=== PATIENT | female | born 1945 | race Caucasian/White ===

== ENCOUNTER 2016-10-07 22:14 | Inpatient (IN) | payer OTHER ==
--- NOTE | ~2016-10-07 | IDS ---
Interim Discharge Summary [facility] [address] [place]. [address] NAME: CHARLOTTE DUNN : 49 STATUS : ADM IN [facility]#: [id number] AGE: 71 ADM/REG DATE : 10/08/16 MR#: [id number] REPORT SERV DATE: 10/26/16 DICTATED BY: GRAHAM CHAUDHARI DATE: 10/26/16 REPORT STATUS : Draft TRANSCRIBED BY: MODL DATE: 10/26/16 ADMISSION DATE: 10/08/2016 DISCHARGE DATE: ADMISSION DIAGNOSES: 1. Hypercapnic respiratory failure requiring intubation mechanical ventilation. 2. Chronic obstructive pulmonary disease exacerbation. 3. Possible pneumonia. 4. Asthma. 5. Degenerative joint disease. 6. Restless legs syndrome. 7. Hypertension. TRANSFER DIAGNOSES: 1. Hypercapnic respiratory failure requiring intubation mechanical ventilation x2. Currently extubated on 5 L with improving chest x-ray. 2. Methicillin-resistant Staphylococcus aureus pneumonia. 3. Chronic obstructive pulmonary disease. 4. Acute kidney injury, resolved. 5. Urinary tract infection, resolved. 6. Type 2 myocardial infarction secondary to hypercapnic respiratory failure, chronic obstructive pulmonary disease. HOSPITAL COURSE: This is a 71-year-old patient, who was admitted to the Critical Care Service on 10/08 for hypercapnic respiratory failure, required intubation, mechanical ventilation. The patient was hypotensive and considered septic, grew out MRSA from her sputum for which she was treated. She was also treated for COPD exacerbation with bronchodilators and steroids which are currently being weaned. She was extubated on 10/15. However, later that evening, required re-intubation for respiratory distress. There was some concern that the patient may very well need a tracheostomy and ENT was consulted. However, the patient was then successfully extubated and has remained off the vent and has been off the vent at least since 10/21. She remains on 5 L nasal cannula. She is alert and awake and currently not in any respiratory distress. [facility] Cardiology was consulted to see the patient and felt that she had a type 2 myocardial infarct. She had an echocardiogram done on 10/12 that showed an ejection fraction of 60%, mild left ventricular diastolic dysfunction, and dilated left atrium. No further workup was required as per Cardiology. Volume status is very closely followed. The patient was diuresed as needed. She also has a diagnosis of type 2 diabetes mellitus and currently is on no insulin sliding scale and in reviewing her home medications she is not on anything for her diabetes at home either. So the diagnosis then is questionable. Her hypotension resolved. She currently has a PICC line and has orders for Physical Therapy. The plan will be to transfer her to the floor, to the Hospitalist Service, and Pulmonary to follow. Of note, in reviewing her culture results apparently she was listed as having a UTI. However, in reviewing the culture, she never had a urine culture sent. So then again the diagnosis of UTI probably is not the case. In reviewing her urinalysis from 10/07, it does not appear that she had a UTI. So the diagnosis of the UTI is not valid. We will also ask the Pulmonary Service to follow along Interim Discharge Summary [address] [place]. [address] NAME: CHARLOTTE DUNN : 49 STATUS : ADM IN PAT#: [id number] AGE: 71 ADM/REG DATE : 10/08/16 MR#: [id number] REPORT SERV DATE: 10/26/16 DICTATED BY: GRAHAM CHAUDHARI DATE: 10/26/16 REPORT STATUS : Draft TRANSCRIBED BY: CODI DATE: 10/26/16 and manage her bronchodilators. Incentive spirometry has been ordered for the patient. /CODI Graham Chaudhari M.D. / [id number] CC: Cristal Almaraz M.D.
--- NOTE | ~2016-10-07 | HP ---
History And Physical [place] [id number] [facility] [place]. [address] NAME: CHARLOTTE DUNN : 49 STATUS : ADM IN [facility]#: [id number] AGE: 71 ADM/REG DATE : 10/08/16 MR#: [id number] REPORT SERV DATE: 10/08/16 DICTATED BY: RAVEN BARGER DATE: 10/08/16 REPORT STATUS : Draft TRANSCRIBED BY: MODL DATE: 10/08/16 DATE OF ADMISSION: 10/07/2016 Seen in ER bed 2. HISTORY OF PRESENT ILLNESS: The patient is a 71-year-old white female, who was brought into the ER tonight by her because he had difficulty arousing her. Reportedly, she went to bed okay the night before. Her tried to get her up by noon and could not wake her up at all by 6 p.m. She came into the hospital with arterial blood gas, which showed a significant hypercapnic respiratory failure and acidosis. She required intubation and mechanical ventilation. PAST MEDICAL HISTORY: Significant for COPD, asthma, DJD, restless legs syndrome, hypertension, GERD, and gastroparesis. She is status post total knee replacement and cholecystectomy. REVIEW OF SYSTEMS: As noted above. All other systems negative. FAMILY HISTORY: Significant for colon cancer in mother, who at 64 and father of emphysema. The patient has a [id number] smoking history. Drinks socially. Lives with her . ALLERGIES: SHE IS ALLERGIC TO PENICILLIN, PENTAZOCINE, ASPIRIN, PROCHLORPERAZINE, CODEINE, OXYCODONE, PROPOXYPHENE, AND BUTORPHANOL. MEDICATIONS: Her home med list is pending. PHYSICAL EXAMINATION: VITAL SIGNS: Currently, blood pressure when I arrived was . GENERAL: The patient had been orally intubated. She was slightly pale in appearance. HEENT: Head was otherwise normocephalic. Sclerae and conjunctivae clear. Pupils reactive. NECK: Supple. There appears to be a possible carotid endarterectomy scar seen in the right neck. CHEST: Decreased breath sounds. Occasional wheezing. CARDIAC: S1, S2. No murmurs. ABDOMEN: Slightly obese and nontender. No masses or organomegaly. EXTREMITIES: No clubbing, cyanosis, or edema. Pulses are barely palpable. NEUROLOGIC: She does move all extremities. LABORATORY DATA: Showed initial arterial blood gas; pH of 7.16, pO2 of 80, pCO2 of 68, on 50%. CT of brain, no acute intracranial pathology. Urine drug screen positive for opiates, lactate 6.9. Drug screen; acetaminophen less than 2, salicylate 2.4, alcohol less than 10. Sodium 139; potassium 4.1; chloride 97; CO2 of 26; BUN 34; creatinine 2.61, up from 0.93 on 09/16/2016; glucose 105; calcium 9.2; total protein 8; albumin 3.7. Alkaline phosphatase 135, ALT 20, AST 66. CBC showed an H and H of 14.2 and 48.3, white count of 8300, platelet History And Physical [address] [address] NAME: CHARLOTTE DUNN : 49 STATUS : ADM IN [facility]#: [id number] AGE: 71 ADM/REG DATE : 10/08/16 MR#: [id number] REPORT SERV DATE: 10/08/16 DICTATED BY: RAVEN BARGER DATE: 10/08/16 REPORT STATUS : Draft TRANSCRIBED BY: MODL DATE: 10/08/16 count of 196,000. PTT 32, INR 1.1, PT 14.1. Urinalysis basically negative. IMPRESSION: 1. Hypercapnic respiratory failure. 2. Acute kidney injury. 3. Elevated serum lactate. Cause unknown at this time. Will be repeated. 4. Chronic obstructive pulmonary disease. 5. Chronic pain syndrome. PLAN: We will keep her intubated. We will start Levophed for blood pressure. Given 2 L of saline. No indication for antibiotics at this point in time. Repeat blood gas after intubation showed a pH of 7.24, pCO2 of 48, pO2 of 158, 100% oxygen. A chest x-ray showed a large amount of gas in the stomach. She had some cervical x-ray. The x-ray is relatively clear, otherwise. PROCEDURE: Right central venous line, internal jugular. INDICATION: For access emergent. DESCRIPTION OF PROCEDURE: Informed consent was obtained from family. Time-out done. The patient placed in Trendelenburg position. ChloraPrep scrub. Xylocaine 1%. Ultrasound- guided right IJ entered with seeker needle. Catheter placed over guidewire via modified Seldinger technique to [address] Sterile technique used throughout. Confirmed by agitated saline bubble echo. Chest x-ray pending. Sterile technique used throughout. PARI/CODI Raven Barger M.D. / [id number] CC: Zhou Lei M.D.
--- NOTE | ~2016-10-07 | CN ---
Consultation Report [facility] [address] [place]. [address] NAME: CHARLOTTE GRANT : 49 STATUS : ADM IN [facility]#: [id number] AGE: 71 ADM/REG DATE : 10/08/16 MR#: [id number] REPORT SERV DATE: 10/21/16 DICTATED BY: CLEM KEITH DATE: 10/21/16 REPORT STATUS : Draft TRANSCRIBED BY: CODI DATE: 10/21/16 CONSULTATION DATE OF CONSULTATION: 10/21/2016 REASON FOR CONSULTATION: Tracheostomy. HISTORY OF PRESENT ILLNESS: Ms Grant is a 71-year-old female admitted on 10/08/2016 for hypercapnic respiratory failure, subsequently required intubation. Despite multiple attempts, since her admission to wean her and extubate her, had been unsuccessful, and they called to see the patient regarding tracheostomy for long-term ventilator management. PAST MEDICAL HISTORY: COPD, hypertension, chronic pain syndrome, gastroparesis, and renal insufficiency. SOCIAL HISTORY: Tobacco abuse. PHYSICAL EXAMINATION: GENERAL: The patient is intubated, arousable. HEENT: Both ears are clear. Nose is clear. Oral cavity and oropharynx; she has an endotracheal tube in place. NECK: Supple. No palpable adenopathy. No masses. No thyromegaly. IMPRESSION: 1. Hypercapnic respiratory failure. 2. Chronic obstructive pulmonary disease. RECOMMENDATIONS: I agree with need for tracheostomy. If the family agrees to proceed, we will discuss with the patient's family and schedule for some point in the future. MEGAN/CODI Clem Keith M.D. / [id number] CC: Chuy Barger M.D.
--- NOTE | ~2016-10-07 | OP ---
Record Of Operation [facility] [address] [place] [address] NAME: CHARLOTTE DUNN : 49 STATUS : ADM IN [facility]#: [id number] AGE: 71 ADM/REG DATE : 10/08/16 MR#: [id number] REPORT SERV DATE: 10/15/16 DICTATED BY: GRAHAM CHAUDHARI DATE: 10/14/16 REPORT STATUS : Draft TRANSCRIBED BY: MODL DATE: 10/14/16 DATE OF PROCEDURE: 10/14/2016 PROCEDURE: Intubation. REASON: Hypoxic respiratory failure, failed BiPAP. The patient is a full code. The patient was extubated earlier today. Chest x-ray showed florid pulmonary vascular congestion. BiPAP did not alleviate the patient's respiratory distress. She was pre-oxygenated with 100% oxygen and given 20 mg of IV etomidate and 5 mL of IV Diprivan for intubation. GlideScope was used. The patient was monitored throughout the procedure. Vocal cords were well visualized and an #8 endotracheal tube was placed on the first attempt without difficulty. Bilateral breath sounds are heard. CO2 sensor changed appropriate color from blue to yellow. Chest x-ray is pending. /MODMekhi Graham Chaudhari M.D. / [id number] CC: Cristal Almaraz M.D.
--- NOTE | ~2016-10-07 | CN ---
Consultation Report [address] [place]. [address] NAME: CHARLOTTE GRANT : 49 STATUS : ADM IN PAT#: [id number] AGE: 71 ADM/REG DATE : 10/08/16 MR#: [id number] REPORT SERV DATE: 10/10/16 DICTATED BY: PJ JOEL DATE: 10/10/16 REPORT STATUS : Draft TRANSCRIBED BY: MODL DATE: 10/10/16 CONSULTATION DATE OF CONSULTATION: 10/10/2016 REASON FOR CONSULTATION: Hypotension, question NSTEMI. HISTORY OF PRESENT ILLNESS: Ms Grant is a 71-year-old female with a history of chronic pain, COPD, obesity, hypertension, and GERD who was admitted on 10/08/2016, with hypercapnic hypoxemic respiratory failure, and underwent intervention on that day. During her hospital course here over the past two days, she has been treated with IV steroids. She was hypertensive for some of her stay here, requiring IV Cardene drip. That was weaned off, however, today she became hypotensive as well as bradycardic down to the 60s (sinus) and was started on Levophed for brief amount of time. At that point in time, given changes in her vitals, cardiac enzymes were checked and her troponin came back elevated at 0.35. Her MB and CK, however, are normal. This prompted consultation for further cardiac evaluation. PAST MEDICAL HISTORY: As above. SOCIAL HISTORY: Unable to obtain as the patient is currently sedated and intubated. FAMILY HISTORY: Unable to obtain as the patient is currently sedated and intubated. REVIEW OF SYSTEMS: Unable to obtain as the patient is currently sedated and intubated. HOME MEDICATIONS: 1. Albuterol. 2. Norvasc. 3. Symbicort. 4. Sinemet. 5. Estrace. 6. Cozaar. 7. Robaxin. 8. MS Contin. 9. Prilosec. 10.Zofran. 11.Afrin. 12.Mirapex. 13.Aldactone. 14.Thiamine. 15.Spiriva. 16.Demadex. 17.Effexor. Consultation Report [address] [place]. [address] NAME: CHARLOTTE GRANT : 49 STATUS : ADM IN PAT#: [id number] AGE: 71 ADM/REG DATE : 10/08/16 MR#: [id number] REPORT SERV DATE: 10/10/16 DICTATED BY: PJ JOEL DATE: 10/10/16 REPORT STATUS : Draft TRANSCRIBED BY: CODI DATE: 10/10/16 PHYSICAL EXAMINATION: VITAL SIGNS: Blood pressure 101/56, pulse sinus rhythm in the 80s, temperature afebrile. GENERAL: Sedated, intubated, in no acute distress. HEAD AND NECK: Normocephalic and atraumatic. ET tube in place. RESPIRATORY: Positive for diffuse rhonchi throughout bilateral lung aldrich as well as mild wheezing. CARDIAC: Regular rate and rhythm. Normal S1, S2. No murmurs, rubs, or gallops. ABDOMEN: Soft, nontender, and nondistended. No rebound or guarding. EXTREMITIES: Warm and dry. Trace edema. 2+ peripheral pulses. SKIN: Grossly intact without obvious active rash. PERTINENT TEST FINDINGS: Troponin 0.35, MB 1.1, CK 209. EKG with sinus rhythm, normal mean QRS axis, good R-wave progression. No pathologic Q-waves. No ischemic ST/T-wave changes. No significant change from previous EKG. Echocardiogram from 08/08/2016 with normal biventricular function, estimated LVEF 60% to 65%. Mild MR and TR. Mild diastolic dysfunction, mild left atrial enlargement. Bedside echocardiogram that I performed at the time of my exam shows normal biventricular function with an estimated ejection fraction of 55% to 60%, and no obvious regional wall motion abnormalities. IMPRESSION: 1. Hypercapnic respiratory failure. 2. Chronic obstructive pulmonary disease exacerbation. 3. Transient sinus bradycardia (same P waves throughout on telemetry), likely vagal mediated. 4. Type 2 myocardial infarction secondary to hypercapnic respiratory failure and chronic obstructive pulmonary disease exacerbation. 5. Acute kidney injury, improving. PLAN: Given no ischemic changes on her EKG as well as high suspicion for vagal-mediated transient drop in blood pressure and heart rate based on my review of telemetry and only brief amount of Levophed being necessary, as well as normal MB/CK fractions despite the elevated troponin at 0.35, I highly doubt that she is having acute coronary syndrome at this time. Nevertheless, it will be fine to trend her cardiac enzymes including CK and MB fractions q.8 hours x3. In addition, wean sedating medications if possible as she is on large doses given chronic tolerance to these medications. Finally, an arterial line may be helpful for more reliable blood pressure measurements in light of her erratic blood pressure changes over the course of the day, which I believe are in part due to positional/cuff related factors. Pending her changes on enzymes as well as clinical status over the course of the next 24 to 48 hours, further recommendations will be made. RUTH/CODI Consultation Report [place] [id number] [place]. [address] NAME: CHARLOTTE GRANT : 49 STATUS : ADM IN [facility]#: [id number] AGE: 71 ADM/REG DATE : 10/08/16 MR#: [id number] REPORT SERV DATE: 10/10/16 DICTATED BY: PJ JOEL DATE: 10/10/16 REPORT STATUS : Draft TRANSCRIBED BY: CODI DATE: 10/10/16 Pj Joel MD / [id number] CC: Cristal Almaraz M.D.
--- NOTE | ~2016-10-07 | DS ---
Discharge Summary [facility] [address] [place]. [address] NAME: CHARLOTTE DUNN : 49 STATUS : DIS IN PAT#: [id number] AGE: 71 ADM/REG DATE : 10/08/16 MR#: [id number] REPORT SERV DATE: 11/01/16 DICTATED BY: JESSICA MIX DATE: 10/31/16 REPORT STATUS : Draft TRANSCRIBED BY: MODL DATE: 10/31/16 ADMISSION DATE: 10/08/2016 DISCHARGE DATE: 10/31/2016 DISCHARGE DIAGNOSES: 1. Acute on chronic hypercapnic respiratory failure. 2. Chronic hypoxic respiratory failure. 3. Chronic obstructive pulmonary disease exacerbation. 4. Restless legs syndrome. 5. Chronic opioid use. 6. Hypertension. 7. Non-STEMI secondary to #1. 8. Gastroparesis. 9. Depression which is medical illness related. MATERIALS ENGINEER: 1. Critical Care Management, Dr. Steiner. 2. Dr. Spence. HISTORY OF PRESENT ILLNESS: This is a 71-year-old female patient who comes to the hospital very often with a similar episode with hypercapnic respiratory failure, was found to be lethargic and was brought to the hospital with hypercapnic respiratory failure. Please see dictated H and P. HOSPITAL COURSE: She was intubated in the hospital in the ICU setting, had a long ICU because of the re-intubation. At the end of the ICU stay, patient was thought to have the necessity of tracheostomy. Seen by one of the ENT physicians. However, she recovered while she was waiting for trach done, and then she was transferred out of the unit. After she came out of the unit, she mainly remained on oxygen. We tried to use the BiPAP, but she was not tolerating her BiPAP use at night in the hospital. For the last four days that I have assumed this case, she has been stable. We did not change any medications. She has been on all her regular home medications. She was found to have a profound weakness after the long hospital stay. Therefore, her discharge was made to [facility]. She was also noted to be severely depressed which is medical illness related. Remeron was started on this admission. She is tolerating all this treatment and understands the necessity of the rehab. The patient will be discharged to [facility] today for ongoing rehab. DISCHARGE MEDICATIONS: Aspirin 81 mg once a day, Lipitor 40 mg once a day, Colace twice a day, Cozaar 50 mg once a day, Prilosec 20 mg twice a day, Mirapex 1 twice a day, Effexor 75 mg once at nighttime, Proventil as needed, Symbicort twice a day, Spiriva once a day, Robaxin 750 mg twice a day as needed. Her diuretic was decreased to torsemide mg once in the morning time as needed. Her pain medication was decreased to intermediate release rather than extended release. Roxicodone 5 mg every 12 hours as needed. Discharge Summary [address] [place]. [address] NAME: CHARLOTTE DUNN : 49 STATUS : DIS IN PAT#: [id number] AGE: 71 ADM/REG DATE : 10/08/16 MR#: [id number] REPORT SERV DATE: 11/01/16 DICTATED BY: JESSICA MIX DATE: 10/31/16 REPORT STATUS : Draft TRANSCRIBED BY: CODI DATE: 10/31/16 TIME SPENT: More than 30 minutes. DISPOSITION: The patient is discharged to [facility] after maximizing inpatient benefit. EKL/MODL Jessica Mix M.D. / [id number] CC: Cristal Esteban M.D.
[2016-10-07 22:13] LABS: BASOPHILS 0.1 %; BASOPHILS ABSOLUTE 0.01 10/3/uL (0.0-0.16); EOSINOPHILS 0 %; ER CBC TAT 0 Hrs 07 Mins; HEMATOCRIT 48.3 % (36.0-48.0); HEMOGLOBIN 14.2 g/dL (12.0-16.0); IMMATURE GRANULOCYTES 0.7 %; IMMATURE GRANULOCYTES ABSOLUTE 0.06 10/3/uL (0.0-0.11); LYMPHOCYTES 9.5 %; LYMPHOCYTES ABSOLUTE 0.79 10/3/uL (0.67-4.30); MANUAL DIFF NO %; MEAN CORPUS HGB CONC 29.4 g/dL (32.0-36.0); MEAN CORPUSCULAR HEMOGLOB 28.5 pg (26.0-34.0); MEAN PLATELET VOLUME 11.4 fL (9.2-13.0); MONOCYTES 9.8 %; MONOCYTES ABSOLUTE 0.81 10/3/uL (0.21-1.20); NEUTROPHILS 79.9 %; NEUTROPHILS ABSOLUTE 6.62 10/3/uL (2.02-8.40); PLATELET COUNT 196 10/3/uL (150-400); RBC DISTRIBUTION WIDTH 17.9 % (12.0-16.0); RED CELL COUNT 4.98 10/6/uL (4.0-5.6); WHITE BLOOD CELLS 8.3 10/3/uL (4.5-10.5)
[~2016-10-07 22:14] MED LIST: *UNABLE3; ADVAIR230P INH; AFRIN15 NAS; ALBUTEROL; ALBUTEROL INH; ALBUTEROL5 INH; AMIT25 PO; ATROVENTUD INH; B1100 PO; BROMIDE; COZAAR100 MG PO; CYMBALTA30 PO; DEMA100 PO; DEMA20 PO; DIL2TAB PO; DULERA 200 MCG/13 GM INH; DUONEB INH; EFFEX75 PO; EFFEXOR PO; EFFEXXR75 PO; ESTRACE0.5 MG PO; ESTRACE1 MG PO; GABAPENTIN PO; HORMONE PILL PO; HYDROCODONE; HYZAAR1 TAB PO; K-TABS10 MEQ PO; KAPIDEX60 MG PO; KLONO1 PO; KLONO5 PO; KLOR-CON M2020 MEQ PO; LACT30UDL PO; LEVAQUIN750 MG PO; LIOR10 PO; LOM PO; LONOX2.5 MG PO; LORTAB10 PO; LOSARTAN PO; MAGOX4 PO; MCZ25 PO; MEDROLPAK4 PO; METHOC500B PO; METHOC750B PO; MIRAPEX PO; MIRAPEX1 MG PO; MIRAPEX5 PO; MSCONT15 PO; MSCONTIN PO; MSIMMREL PO; MUCINEX SINUS PO; MUCINEX1200 MG PO; MULTIVITAMI1 PO; NEUR100 PO; NEUR300 PO; NICODERM C21 MG/241 TOP; NORCO1 TA1 PO; NORV5 PO; OMEPRAZOLE PO; P10 PO; P125 PO; PEP20 PO; POTASSIUM OTC PO; POTASSIUM95 MG PO; PR25 PO; PREM625 PO; PREMPRO1 TA2 PO; PRILO PO; PRILOSEC40 MG PO; PROAIR HFA INH; REQUIP1 PO; ROBAXIN PO; SIN25 PO; SINEMET PO; SPIRIVA INH; SPIRO25 PO; STERAPDS12 PO; SYMBICORT 160/41 INH INH; SYMBICORT INH; T100 PO; TEARS PURE OPH; TESSALON200 MG PO; THERA M PLUS PO; TORSEMIDE PO; TRAZODONE150 MG PO; UNABLE TO RECALL; UNIPHYL 400 MG400 MG PO; V5 PO; VENTOLIN HFA INH; VITAMIN D31000 UNIT PO; ZOFRAN PO; ZOFRAN4 PO; ZOL100 PO; ZOL50 PO; [UNRECOGNIZED DRUG - OTHER] INH; [UNRECOGNIZED DRUG - REMARK] PO
[2016-10-07 22:16] LABS: WBC (NOT ORDERED) (RFLEX) 0 (0-5)
[2016-10-07 22:20] LABS: INTERNATIONAL NORMAL RATI 1.1 UNITS (-); PROTIME (NOT ORD) 14.1 SEC (12.0-14.5)
[2016-10-07 22:24] LABS: ASCORBIC ACID (UR NOT ORDER) NEG (NEG); BILIRUBIN, URINE NEGATIVE (NEG); ER URINALYSIS TAT 0 Hrs 12 Mins; KETONE, URINE TRACE MG/DL (NEG); LEUKOCYTE ESTERASE(NOT OR NEG (NEG); NITRITE (URINE) NEG (NEG)
[2016-10-07 22:27] LABS: ALLENS TEST Pos; BE (BASE EXCESS) -7.4 MEQ/L (0 +/- 2.5); CARBOXYHEMOGLOBIN 4.2 % (0-3); HCO3 (ACTUAL BICARBONATE) 20.1 MEQ/L (23-27); HEMOBLOGIN CONTENT 14.5 G/DL (12-16); INSTRUMENT SERIAL # 8087; METHEMOGLOBIN 0.2 % (0-3); O2 CONTENT 19.6 VOL% (18-24); OPERATOR ID 334499; PCO2 (CO2 TENSION) 48 MMHG (35-45); PO2 (O2 TENSION) 158 MMHG (79-93); SAMPLE Arterial; pH 7.24 (7.37-7.43)
[2016-10-07 22:27] LABS: ALBUMIN 3.7 G/DL (3.5-5.0); CALCIUM, SERUM 9.2 MG/DL (8.5-10.4); CHLORIDE, SERUM 97 MMOL/L (96-112); GLUCOSE, SERUM 105 MG/DL (60-99); SALICYLATE 2.4 MG/DL (-); SGPT(ALT) 20 U/L (5-65); SODIUM, SERUM 139 MMOL/L (135-148); TOTAL BILIRUBIN 0.4 MG/DL (0-1.2)
[2016-10-07 22:28] LABS: A/G RATIO 0.9 (0.7-1.9); ALCOHOL < 10 MG/DL (0); ALKALINE PHOSPHATASE 135 U/L (45-117); BUN (BLOOD UREA NITROGEN) 34 MG/DL (6-23); CO2 (CARBON DIOXIDE) 26 MMOL/L (24-34); CREATININE 2.61 MG/DL (0.55-1.02); GFR AFRICAN AMERICAN 21 ML/MIN (>=60); GFR NON AFRICAN AMERICAN 18 ML/MIN (>=60); GLOBULIN 4.3 G/DL (2.5-4.1); POTASSIUM, SERUM 4.9 MMOL/L (3.5-5.3); SGOT(AST) 66 U/L (5-40)
[2016-10-07 22:29] LABS: ACETAMINOPHEN LEVEL (TYLENOL) < 2.0 MCG/ML (10.0-20.0); LACTATE 6.9 MMOL/L (0.3-2.4)
[2016-10-07 22:49] LABS: AMPHETAMINES (NOT ORD) NEG (NEG); BARBITURATES (NOT ORDERED NEG (NEG); BENZODIAZEPINES (NOT ORD) NEG (NEG); CANNABINOIDS (THC) NEG (NEG); COCAINE (NOT ORDERED) NEG (NEG); OPIATES POS (NEG); PHENCYCLIDINE(PCP) NEG (NEG); TRICYCLICS NEG (NEG)
[2016-10-07 23:59] LABS: BE (BASE EXCESS) -3.1 MEQ/L (0 +/- 2.5); CARBOXYHEMOGLOBIN 3.9 % (0-3); HCO3 (ACTUAL BICARBONATE) 27.7 MEQ/L (23-27); INSTRUMENT SERIAL # 8087; METHEMOGLOBIN 0.3 % (0-3); OPERATOR ID 334499; PCO2 (CO2 TENSION) 80 MMHG (35-45); PO2 (O2 TENSION) 68 MMHG (79-93); SAMPLE Arterial; pH 7.16 (7.37-7.43)
[2016-10-08] LABS: BIPAP 16/6 cm.H2O
[2016-10-08 04:01] LABS: ALLENS TEST Pos; BE (BASE EXCESS) -1.3 MEQ/L (0 +/- 2.5); CARBOXYHEMOGLOBIN 0.6 % (0-3); HCO3 (ACTUAL BICARBONATE) 25.9 MEQ/L (23-27); HEMOBLOGIN CONTENT 13.7 G/DL (12-16); INSTRUMENT SERIAL # 11843; METHEMOGLOBIN 0.4 % (0-3); MODE CMV; O2 CONTENT 19.2 VOL% (18-24); OPERATOR ID 13744; PCO2 (CO2 TENSION) 54 MMHG (35-45); PO2 (O2 TENSION) 174 MMHG (79-93); SAMPLE Arterial; TIDAL VOLUME 500 ML
[2016-10-08 06:31] LABS: BASOPHILS 0.1 %; BASOPHILS ABSOLUTE 0.01 10/3/uL (0.0-0.16); EOSINOPHILS 0 %; HEMATOCRIT 43.5 % (36.0-48.0); HEMOGLOBIN 13.1 g/dL (12.0-16.0); IMMATURE GRANULOCYTES 0.4 %; IMMATURE GRANULOCYTES ABSOLUTE 0.04 10/3/uL (0.0-0.11); LYMPHOCYTES 14.6 %; LYMPHOCYTES ABSOLUTE 1.51 10/3/uL (0.67-4.30); MEAN CORPUS HGB CONC 30.1 g/dL (32.0-36.0); MEAN CORPUSCULAR HEMOGLOB 27.8 pg (26.0-34.0); MEAN PLATELET VOLUME 11.3 fL (9.2-13.0); MONOCYTES 12.5 %; MONOCYTES ABSOLUTE 1.29 10/3/uL (0.21-1.20); NEUTROPHILS 72.4 %; NEUTROPHILS ABSOLUTE 7.49 10/3/uL (2.02-8.40); PLATELET COUNT 168 10/3/uL (150-400); RBC DISTRIBUTION WIDTH 17.6 % (12.0-16.0); RED CELL COUNT 4.71 10/6/uL (4.0-5.6); WHITE BLOOD CELLS 10.3 10/3/uL (4.5-10.5)
[2016-10-08 06:36] LABS: MANUAL DIFF NO %; MEAN CORPUSCULAR VOLUME 92.4 fL (80-100)
[2016-10-08 07:30] LABS: BUN (BLOOD UREA NITROGEN) 39 MG/DL (6-23); CALCIUM, SERUM 8.1 MG/DL (8.5-10.4); CHLORIDE, SERUM 102 MMOL/L (96-112); CO2 (CARBON DIOXIDE) 26 MMOL/L (24-34); CREATININE 2.45 MG/DL (0.55-1.02); GFR AFRICAN AMERICAN 23 ML/MIN (>=60); GFR NON AFRICAN AMERICAN 19 ML/MIN (>=60); GLUCOSE, SERUM 108 MG/DL (60-99); PHOSPHORUS, SERUM 6.5 MG/DL (2.5-4.5); POTASSIUM, SERUM 4.5 MMOL/L (3.5-5.3); SODIUM, SERUM 142 MMOL/L (135-148)
[2016-10-09 03:22] LABS: BASOPHILS 0 %; EOSINOPHILS 0 %; HEMOGLOBIN 12.1 g/dL (12.0-16.0); IMMATURE GRANULOCYTES 0.4 %; IMMATURE GRANULOCYTES ABSOLUTE 0.04 10/3/uL (0.0-0.11); LYMPHOCYTES 5.1 %; LYMPHOCYTES ABSOLUTE 0.49 10/3/uL (0.67-4.30); MEAN CORPUS HGB CONC 31.5 g/dL (32.0-36.0); MEAN CORPUSCULAR HEMOGLOB 28.1 pg (26.0-34.0); MONOCYTES ABSOLUTE 0.29 10/3/uL (0.21-1.20); NEUTROPHILS 91.5 %; PLATELET COUNT 152 10/3/uL (150-400); RBC DISTRIBUTION WIDTH 17.5 % (12.0-16.0); RED CELL COUNT 4.31 10/6/uL (4.0-5.6); WHITE BLOOD CELLS 9.6 10/3/uL (4.5-10.5)
[2016-10-09 03:23] LABS: HEMATOCRIT 38.4 % (36.0-48.0); MANUAL DIFF NO %; MEAN CORPUSCULAR VOLUME 89.1 fL (80-100)
[2016-10-09 03:46] LABS: BUN (BLOOD UREA NITROGEN) 37 MG/DL (6-23); CALCIUM, SERUM 8.1 MG/DL (8.5-10.4); CHLORIDE, SERUM 107 MMOL/L (96-112); CO2 (CARBON DIOXIDE) 28 MMOL/L (24-34); SGOT(AST) 69 U/L (5-40); SGPT(ALT) 31 U/L (5-65); SODIUM, SERUM 143 MMOL/L (135-148); TOTAL BILIRUBIN 0.2 MG/DL (0-1.2); TOTAL PROTEIN 6.4 G/DL (6.0-8.5)
[2016-10-09 03:51] LABS: A/G RATIO 0.9 (0.7-1.9); ALKALINE PHOSPHATASE 94 U/L (45-117); CREATININE 1.11 MG/DL (0.55-1.02); GFR AFRICAN AMERICAN 59 ML/MIN (>=60); GFR NON AFRICAN AMERICAN 51 ML/MIN (>=60); GLOBULIN 3.4 G/DL (2.5-4.1); GLUCOSE, SERUM 149 MG/DL (60-99); PHOSPHORUS, SERUM 1.9 MG/DL (2.5-4.5); POTASSIUM, SERUM 3.4 MMOL/L (3.5-5.3)
[2016-10-09 04:05] LABS: ALLENS TEST Pos; BE (BASE EXCESS) 3.7 MEQ/L (0 +/- 2.5); CARBOXYHEMOGLOBIN 0.3 % (0-3); HCO3 (ACTUAL BICARBONATE) 27.8 MEQ/L (23-27); HEMOBLOGIN CONTENT 12.8 G/DL (12-16); INSTRUMENT SERIAL # 11843; METHEMOGLOBIN 0.4 % (0-3); MODE CMV; O2 CONTENT 16.5 VOL% (18-24); OPERATOR ID 32193; PCO2 (CO2 TENSION) 40 MMHG (35-45); PO2 (O2 TENSION) 66 MMHG (79-93); SAMPLE Arterial; TIDAL VOLUME 500 ML; pH 7.46 (7.37-7.43)
[2016-10-09 05:41] LABS: PROCALCITONIN 0.05 ng/mL (<0.5)
[2016-10-10 03:25] LABS: BASOPHILS 0 %; EOSINOPHILS 0 %; HEMATOCRIT 37.2 % (36.0-48.0); HEMOGLOBIN 11.9 g/dL (12.0-16.0); IMMATURE GRANULOCYTES 0.2 %; IMMATURE GRANULOCYTES ABSOLUTE 0.03 10/3/uL (0.0-0.11); LYMPHOCYTES 3.4 %; LYMPHOCYTES ABSOLUTE 0.43 10/3/uL (0.67-4.30); MEAN CORPUSCULAR HEMOGLOB 28.7 pg (26.0-34.0); MEAN CORPUSCULAR VOLUME 89.6 fL (80-100); MEAN PLATELET VOLUME 11.4 fL (9.2-13.0); MONOCYTES 1.9 %; MONOCYTES ABSOLUTE 0.24 10/3/uL (0.21-1.20); NEUTROPHILS 94.5 %; NEUTROPHILS ABSOLUTE 12.04 10/3/uL (2.02-8.40); PLATELET COUNT 165 10/3/uL (150-400); RBC DISTRIBUTION WIDTH 18.1 % (12.0-16.0); RED CELL COUNT 4.15 10/6/uL (4.0-5.6); WHITE BLOOD CELLS 12.7 10/3/uL (4.5-10.5)
[2016-10-10 03:27] LABS: MANUAL DIFF NO %
[2016-10-10 03:40] LABS: CHLORIDE, SERUM 108 MMOL/L (96-112); CO2 (CARBON DIOXIDE) 28 MMOL/L (24-34); CREATININE 0.77 MG/DL (0.55-1.02); GFR AFRICAN AMERICAN 91 ML/MIN (>=60); GFR NON AFRICAN AMERICAN 79 ML/MIN (>=60); GLUCOSE, SERUM 166 MG/DL (60-99); POTASSIUM, SERUM 3.7 MMOL/L (3.5-5.3); SODIUM, SERUM 145 MMOL/L (135-148)
[2016-10-10 03:41] LABS: BUN (BLOOD UREA NITROGEN) 31 MG/DL (6-23)
[2016-10-10 04:16] LABS: ALLENS TEST Pos; BE (BASE EXCESS) 2.2 MEQ/L (0 +/- 2.5); CARBOXYHEMOGLOBIN 0.3 % (0-3); HEMOBLOGIN CONTENT 12.8 G/DL (12-16); INSTRUMENT SERIAL # 11843; METHEMOGLOBIN 0.5 % (0-3); MODE CMV; O2 CONTENT 16.6 VOL% (18-24); OPERATOR ID 32193; PCO2 (CO2 TENSION) 43 MMHG (35-45); PO2 (O2 TENSION) 72 MMHG (79-93); SAMPLE Arterial; TIDAL VOLUME 500 ML; pH 7.42 (7.37-7.43)
[2016-10-10 12:27] LABS: ALLENS TEST Pos; BE (BASE EXCESS) 3.8 MEQ/L (0 +/- 2.5); CARBOXYHEMOGLOBIN 0.3 % (0-3); HEMOBLOGIN CONTENT 12.5 G/DL (12-16); INSTRUMENT SERIAL # 11843; METHEMOGLOBIN 0.4 % (0-3); MODE CMV; O2 CONTENT 16.9 VOL% (18-24); OPERATOR ID 13715; PCO2 (CO2 TENSION) 52 MMHG (35-45); PO2 (O2 TENSION) 93 MMHG (79-93); SAMPLE Arterial; TIDAL VOLUME 500 ML; pH 7.38 (7.37-7.43)
[2016-10-10 17:02] LABS: BASOPHILS 0 %; EOSINOPHILS 0.1 %; EOSINOPHILS ABSOLUTE 0.01 10/3/uL (0.0-0.53); HEMATOCRIT 39.5 % (36.0-48.0); HEMOGLOBIN 12.3 g/dL (12.0-16.0); IMMATURE GRANULOCYTES 0.3 %; IMMATURE GRANULOCYTES ABSOLUTE 0.05 10/3/uL (0.0-0.11); LYMPHOCYTES 3.1 %; LYMPHOCYTES ABSOLUTE 0.55 10/3/uL (0.67-4.30); MEAN CORPUS HGB CONC 31.1 g/dL (32.0-36.0); MEAN CORPUSCULAR HEMOGLOB 28.2 pg (26.0-34.0); MEAN CORPUSCULAR VOLUME 90.6 fL (80-100); MEAN PLATELET VOLUME 11.7 fL (9.2-13.0); MONOCYTES 2.8 %; MONOCYTES ABSOLUTE 0.49 10/3/uL (0.21-1.20); NEUTROPHILS 93.7 %; NEUTROPHILS ABSOLUTE 16.44 10/3/uL (2.02-8.40); PLATELET COUNT 192 10/3/uL (150-400); RBC DISTRIBUTION WIDTH 18.1 % (12.0-16.0); RED CELL COUNT 4.36 10/6/uL (4.0-5.6); WHITE BLOOD CELLS 17.5 10/3/uL (4.5-10.5)
[2016-10-10 17:03] LABS: MANUAL DIFF NO %
[2016-10-10 17:20] LABS: A/G RATIO 0.8 (0.7-1.9); ALBUMIN 2.8 G/DL (3.5-5.0); ALKALINE PHOSPHATASE 77 U/L (45-117); BUN (BLOOD UREA NITROGEN) 37 MG/DL (6-23); CALCIUM, SERUM 8.2 MG/DL (8.5-10.4); CHLORIDE, SERUM 108 MMOL/L (96-112); CK-MB 1.1 NG/ML; CO2 (CARBON DIOXIDE) 30 MMOL/L (24-34); CPK 209 U/L (0-200); CREATININE 0.92 MG/DL (0.55-1.02); GFR AFRICAN AMERICAN 74 ML/MIN (>=60); GFR NON AFRICAN AMERICAN 64 ML/MIN (>=60); GLOBULIN 3.7 G/DL (2.5-4.1); GLUCOSE, SERUM 135 MG/DL (60-99); POTASSIUM, SERUM 4.5 MMOL/L (3.5-5.3); SGOT(AST) 26 U/L (5-40); SGPT(ALT) 7 U/L (5-65); SODIUM, SERUM 144 MMOL/L (135-148); TOTAL BILIRUBIN 0.2 MG/DL (0-1.2); TOTAL PROTEIN 6.5 G/DL (6.0-8.5); TROPONIN I 0.35 NG/ML (<0.05)
[2016-10-11 00:15] LABS: CK-MB 1.1 NG/ML; CPK 163 U/L (0-200); TROPONIN I 0.28 NG/ML (<0.05)
[2016-10-11 03:25] LABS: ALLENS TEST Pos; BE (BASE EXCESS) 3.4 MEQ/L (0 +/- 2.5); CARBOXYHEMOGLOBIN 0.3 % (0-3); HCO3 (ACTUAL BICARBONATE) 31.9 MEQ/L (23-27); HEMOBLOGIN CONTENT 13.9 G/DL (12-16); INSTRUMENT SERIAL # 11843; METHEMOGLOBIN 0.4 % (0-3); MODE CMV; O2 CONTENT 18.6 VOL% (18-24); OPERATOR ID 16503; PCO2 (CO2 TENSION) 67 MMHG (35-45); PO2 (O2 TENSION) 90 MMHG (79-93); SAMPLE Arterial; TIDAL VOLUME 500 ML
[2016-10-11 04:27] LABS: BASOPHILS 0 %; BASOPHILS ABSOLUTE 0.01 10/3/uL (0.0-0.16); EOSINOPHILS 0 %; HEMATOCRIT 41.9 % (36.0-48.0); HEMOGLOBIN 12.9 g/dL (12.0-16.0); IMMATURE GRANULOCYTES 0.3 %; IMMATURE GRANULOCYTES ABSOLUTE 0.07 10/3/uL (0.0-0.11); LYMPHOCYTES 1.8 %; LYMPHOCYTES ABSOLUTE 0.36 10/3/uL (0.67-4.30); MEAN CORPUS HGB CONC 30.8 g/dL (32.0-36.0); MEAN CORPUSCULAR VOLUME 91.1 fL (80-100); MEAN PLATELET VOLUME 10.9 fL (9.2-13.0); MONOCYTES 5.3 %; MONOCYTES ABSOLUTE 1.06 10/3/uL (0.21-1.20); NEUTROPHILS 92.6 %; NEUTROPHILS ABSOLUTE 18.59 10/3/uL (2.02-8.40); PLATELET COUNT 178 10/3/uL (150-400); RBC DISTRIBUTION WIDTH 18.2 % (12.0-16.0); WHITE BLOOD CELLS 20.1 10/3/uL (4.5-10.5)
[2016-10-11 04:31] LABS: MANUAL DIFF NO %
[2016-10-11 04:39] LABS: BUN (BLOOD UREA NITROGEN) 39 MG/DL (6-23); CALCIUM, SERUM 8.2 MG/DL (8.5-10.4); CHLORIDE, SERUM 105 MMOL/L (96-112); CO2 (CARBON DIOXIDE) 31 MMOL/L (24-34); CREATININE 0.88 MG/DL (0.55-1.02); GFR AFRICAN AMERICAN 78 ML/MIN (>=60); GFR NON AFRICAN AMERICAN 67 ML/MIN (>=60); GLUCOSE, SERUM 145 MG/DL (60-99); POTASSIUM, SERUM 4.1 MMOL/L (3.5-5.3); SODIUM, SERUM 145 MMOL/L (135-148)
[2016-10-11 04:43] LABS: PHOSPHORUS, SERUM 4.1 MG/DL (2.5-4.5)
[2016-10-11 06:53] LABS: PROCALCITONIN 0.05 ng/mL (<0.5)
[2016-10-11 08:04] LABS: CPK 145 U/L (0-200)
[2016-10-11 08:05] LABS: CK-MB 1.4 NG/ML; TROPONIN I 0.22 NG/ML (<0.05)
[2016-10-11 08:10] LABS: BE (BASE EXCESS) 3.5 MEQ/L (0 +/- 2.5); CARBOXYHEMOGLOBIN 0.3 % (0-3); INSTRUMENT SERIAL # 11843; METHEMOGLOBIN 0.4 % (0-3); PCO2 (CO2 TENSION) 54 MMHG (35-45); PO2 (O2 TENSION) 74 MMHG (79-93); pH 7.37 (7.37-7.43)
[2016-10-11 08:11] LABS: ALLENS TEST Pos; HEMOBLOGIN CONTENT 12.9 G/DL (12-16); MODE CMV; O2 CONTENT 16.8 VOL% (18-24); SAMPLE Arterial; TIDAL VOLUME 500 ML
[2016-10-11 17:33] LABS: CK-MB 1.8 NG/ML; CPK 130 U/L (0-200)
[2016-10-11 17:34] LABS: TROPONIN I 0.18 NG/ML (<0.05)
[2016-10-12 03:27] LABS: BASOPHILS 0 %; EOSINOPHILS 0 %; HEMATOCRIT 38.1 % (36.0-48.0); HEMOGLOBIN 11.9 g/dL (12.0-16.0); IMMATURE GRANULOCYTES 0.5 %; IMMATURE GRANULOCYTES ABSOLUTE 0.09 10/3/uL (0.0-0.11); MEAN CORPUS HGB CONC 31.2 g/dL (32.0-36.0); MEAN CORPUSCULAR HEMOGLOB 28.1 pg (26.0-34.0); MEAN CORPUSCULAR VOLUME 89.9 fL (80-100); MEAN PLATELET VOLUME 10.7 fL (9.2-13.0); MONOCYTES 4.6 %; MONOCYTES ABSOLUTE 0.76 10/3/uL (0.21-1.20); NEUTROPHILS 91.9 %; NEUTROPHILS ABSOLUTE 15.16 10/3/uL (2.02-8.40); PLATELET COUNT 183 10/3/uL (150-400); RBC DISTRIBUTION WIDTH 17.7 % (12.0-16.0); RED CELL COUNT 4.24 10/6/uL (4.0-5.6); WHITE BLOOD CELLS 16.5 10/3/uL (4.5-10.5)
[2016-10-12 03:31] LABS: MANUAL DIFF NO %
[2016-10-12 03:50] LABS: BUN (BLOOD UREA NITROGEN) 50 MG/DL (6-23); CALCIUM, SERUM 8.1 MG/DL (8.5-10.4); CHLORIDE, SERUM 105 MMOL/L (96-112); CO2 (CARBON DIOXIDE) 33 MMOL/L (24-34); CREATININE 0.82 MG/DL (0.55-1.02); GFR AFRICAN AMERICAN 85 ML/MIN (>=60); GFR NON AFRICAN AMERICAN 73 ML/MIN (>=60); GLUCOSE, SERUM 127 MG/DL (60-99); POTASSIUM, SERUM 4.3 MMOL/L (3.5-5.3); SODIUM, SERUM 148 MMOL/L (135-148)
[2016-10-12 04:18] LABS: BE (BASE EXCESS) 7.8 MEQ/L (0 +/- 2.5); CARBOXYHEMOGLOBIN 0.3 % (0-3); INSTRUMENT SERIAL # 11843; METHEMOGLOBIN 0.4 % (0-3); PCO2 (CO2 TENSION) 49 MMHG (35-45); PO2 (O2 TENSION) 82 MMHG (79-93); pH 7.45 (7.37-7.43)
[2016-10-12 04:19] LABS: ALLENS TEST Pos; HEMOBLOGIN CONTENT 12.4 G/DL (12-16); MODE CMV; O2 CONTENT 16.6 VOL% (18-24); OPERATOR ID 16469; SAMPLE Arterial; TIDAL VOLUME 90 ML
[2016-10-13 03:46] LABS: BASOPHILS 0.1 %; BASOPHILS ABSOLUTE 0.01 10/3/uL (0.0-0.16); EOSINOPHILS 0 %; HEMATOCRIT 36.5 % (36.0-48.0); HEMOGLOBIN 11.2 g/dL (12.0-16.0); IMMATURE GRANULOCYTES 0.7 %; LYMPHOCYTES 3.1 %; LYMPHOCYTES ABSOLUTE 0.46 10/3/uL (0.67-4.30); MEAN CORPUS HGB CONC 30.7 g/dL (32.0-36.0); MEAN CORPUSCULAR HEMOGLOB 27.7 pg (26.0-34.0); MEAN CORPUSCULAR VOLUME 90.1 fL (80-100); MEAN PLATELET VOLUME 10.6 fL (9.2-13.0); MONOCYTES 5.8 %; MONOCYTES ABSOLUTE 0.85 10/3/uL (0.21-1.20); NEUTROPHILS 90.3 %; NEUTROPHILS ABSOLUTE 13.24 10/3/uL (2.02-8.40); PLATELET COUNT 160 10/3/uL (150-400); RBC DISTRIBUTION WIDTH 17.7 % (12.0-16.0); RED CELL COUNT 4.05 10/6/uL (4.0-5.6); WHITE BLOOD CELLS 14.7 10/3/uL (4.5-10.5)
[2016-10-13 03:47] LABS: MANUAL DIFF NO %
[2016-10-13 04:01] LABS: A/G RATIO 1.1 (0.7-1.9); ALBUMIN 3.3 G/DL (3.5-5.0); ALKALINE PHOSPHATASE 52 U/L (45-117); BUN (BLOOD UREA NITROGEN) 51 MG/DL (6-23); CALCIUM, SERUM 8.2 MG/DL (8.5-10.4); CHLORIDE, SERUM 104 MMOL/L (96-112); CO2 (CARBON DIOXIDE) 34 MMOL/L (24-34); CREATININE 0.83 MG/DL (0.55-1.02); GFR AFRICAN AMERICAN 83 ML/MIN (>=60); GFR NON AFRICAN AMERICAN 72 ML/MIN (>=60); GLUCOSE, SERUM 151 MG/DL (60-99); POTASSIUM, SERUM 3.9 MMOL/L (3.5-5.3); SGOT(AST) 9 U/L (5-40); SGPT(ALT) 13 U/L (5-65); SODIUM, SERUM 147 MMOL/L (135-148); TOTAL PROTEIN 6.3 G/DL (6.0-8.5)
[2016-10-14 03:31] LABS: BASOPHILS 0.1 %; BASOPHILS ABSOLUTE 0.01 10/3/uL (0.0-0.16); EOSINOPHILS 0 %; HEMATOCRIT 36.9 % (36.0-48.0); HEMOGLOBIN 11.3 g/dL (12.0-16.0); IMMATURE GRANULOCYTES 1.2 %; LYMPHOCYTES 2.6 %; LYMPHOCYTES ABSOLUTE 0.44 10/3/uL (0.67-4.30); MEAN CORPUS HGB CONC 30.6 g/dL (32.0-36.0); MEAN CORPUSCULAR HEMOGLOB 27.9 pg (26.0-34.0); MEAN CORPUSCULAR VOLUME 91.1 fL (80-100); MEAN PLATELET VOLUME 10.9 fL (9.2-13.0); MONOCYTES 7.9 %; MONOCYTES ABSOLUTE 1.31 10/3/uL (0.21-1.20); NEUTROPHILS 88.2 %; NEUTROPHILS ABSOLUTE 14.69 10/3/uL (2.02-8.40); PLATELET COUNT 165 10/3/uL (150-400); RBC DISTRIBUTION WIDTH 17.7 % (12.0-16.0); RED CELL COUNT 4.05 10/6/uL (4.0-5.6); WHITE BLOOD CELLS 16.7 10/3/uL (4.5-10.5)
[2016-10-14 03:32] LABS: MANUAL DIFF NO %
[2016-10-14 03:43] LABS: CALCIUM, SERUM 9.1 MG/DL (8.5-10.4); CHLORIDE, SERUM 100 MMOL/L (96-112); CO2 (CARBON DIOXIDE) 37 MMOL/L (24-34); CREATININE 0.85 MG/DL (0.55-1.02); GFR AFRICAN AMERICAN 81 ML/MIN (>=60); GFR NON AFRICAN AMERICAN 70 ML/MIN (>=60); GLUCOSE, SERUM 129 MG/DL (60-99); POTASSIUM, SERUM 3.8 MMOL/L (3.5-5.3); SODIUM, SERUM 144 MMOL/L (135-148)
[2016-10-14 03:44] LABS: ALBUMIN 4.2 G/DL (3.5-5.0); BUN (BLOOD UREA NITROGEN) 56 MG/DL (6-23)
[2016-10-14 10:54] LABS: ALLENS TEST Pos; BE (BASE EXCESS) 15.3 MEQ/L (0 +/- 2.5); CARBOXYHEMOGLOBIN 0.4 % (0-3); DEVICE NC; HCO3 (ACTUAL BICARBONATE) 42.6 MEQ/L (23-27); HEMOBLOGIN CONTENT 12.6 G/DL (12-16); INSTRUMENT SERIAL # 11843; METHEMOGLOBIN 0.4 % (0-3); O2 CONTENT 14.9 VOL% (18-24); OPERATOR ID 32214; PCO2 (CO2 TENSION) 66 MMHG (35-45); PO2 (O2 TENSION) 48 MMHG (79-93); SAMPLE Arterial; pH 7.43 (7.37-7.43)
[2016-10-14 18:49] LABS: BE (BASE EXCESS) 17.1 MEQ/L (0 +/- 2.5); HCO3 (ACTUAL BICARBONATE) 43.8 MEQ/L (23-27); INSTRUMENT SERIAL # 11843; PCO2 (CO2 TENSION) 61 MMHG (35-45); PO2 (O2 TENSION) 53 MMHG (79-93); pH 7.48 (7.37-7.43)
[2016-10-14 18:50] LABS: ALLENS TEST Pos; CARBOXYHEMOGLOBIN 0.5 % (0-3); HEMOBLOGIN CONTENT 13.3 G/DL (12-16); METHEMOGLOBIN 0.3 % (0-3); OPERATOR ID 32214; SAMPLE Arterial
[2016-10-14 23:39] LABS: ALLENS TEST Pos; BE (BASE EXCESS) 16.5 MEQ/L (0 +/- 2.5); CARBOXYHEMOGLOBIN 0.4 % (0-3); HCO3 (ACTUAL BICARBONATE) 42.1 MEQ/L (23-27); HEMOBLOGIN CONTENT 13.8 G/DL (12-16); INSTRUMENT SERIAL # 11843; METHEMOGLOBIN 0.3 % (0-3); MODE CMV; O2 CONTENT 17.4 VOL% (18-24); OPERATOR ID 23712; PCO2 (CO2 TENSION) 53 MMHG (35-45); PO2 (O2 TENSION) 59 MMHG (79-93); SAMPLE Arterial; TIDAL VOLUME 550 ML; pH 7.52 (7.37-7.43)
[2016-10-15 00:07] LABS: POTASSIUM, SERUM 3.7 MMOL/L (3.5-5.3)
[2016-10-15 03:49] LABS: BASOPHILS 0.1 %; BASOPHILS ABSOLUTE 0.02 10/3/uL (0.0-0.16); EOSINOPHILS 0 %; HEMATOCRIT 38.9 % (36.0-48.0); HEMOGLOBIN 12.2 g/dL (12.0-16.0); LYMPHOCYTES ABSOLUTE 1.02 10/3/uL (0.67-4.30); MEAN CORPUS HGB CONC 31.4 g/dL (32.0-36.0); MEAN CORPUSCULAR VOLUME 89.4 fL (80-100); MEAN PLATELET VOLUME 11.1 fL (9.2-13.0); MONOCYTES 3.8 %; MONOCYTES ABSOLUTE 0.78 10/3/uL (0.21-1.20); NEUTROPHILS 90.1 %; NEUTROPHILS ABSOLUTE 18.56 10/3/uL (2.02-8.40); PLATELET COUNT 170 10/3/uL (150-400); RBC DISTRIBUTION WIDTH 17.4 % (12.0-16.0); RED CELL COUNT 4.35 10/6/uL (4.0-5.6); WHITE BLOOD CELLS 20.6 10/3/uL (4.5-10.5)
[2016-10-15 03:52] LABS: MANUAL DIFF NO %
[2016-10-15 04:05] LABS: ALBUMIN 3.6 G/DL (3.5-5.0); BUN (BLOOD UREA NITROGEN) 59 MG/DL (6-23); CALCIUM, SERUM 9.3 MG/DL (8.5-10.4); CHLORIDE, SERUM 98 MMOL/L (96-112); CO2 (CARBON DIOXIDE) 38 MMOL/L (24-34); CREATININE 0.98 MG/DL (0.55-1.02); GFR AFRICAN AMERICAN 68 ML/MIN (>=60); GFR NON AFRICAN AMERICAN 59 ML/MIN (>=60); PHOSPHORUS, SERUM 3.9 MG/DL (2.5-4.5); POTASSIUM, SERUM 3.9 MMOL/L (3.5-5.3); SODIUM, SERUM 147 MMOL/L (135-148)
[2016-10-15 04:06] LABS: GLUCOSE, SERUM 166 MG/DL (60-99)
[2016-10-15 05:41] LABS: BE (BASE EXCESS) 13.6 MEQ/L (0 +/- 2.5); CARBOXYHEMOGLOBIN 0.1 % (0-3); HCO3 (ACTUAL BICARBONATE) 38.5 MEQ/L (23-27); INSTRUMENT SERIAL # 11843; METHEMOGLOBIN 0.4 % (0-3); MODE CMV; O2 CONTENT 18.1 VOL% (18-24); OPERATOR ID 23712; PCO2 (CO2 TENSION) 49 MMHG (35-45); PO2 (O2 TENSION) 139 MMHG (79-93); SAMPLE Arterial; TIDAL VOLUME 550 ML; pH 7.51 (7.37-7.43)
[2016-10-15 05:42] LABS: ALLENS TEST Pos
[2016-10-16 03:39] LABS: BASOPHILS 0.1 %; BASOPHILS ABSOLUTE 0.01 10/3/uL (0.0-0.16); EOSINOPHILS 0 %; HEMATOCRIT 36.4 % (36.0-48.0); HEMOGLOBIN 11.4 g/dL (12.0-16.0); IMMATURE GRANULOCYTES 1.1 %; LYMPHOCYTES 3.3 %; LYMPHOCYTES ABSOLUTE 0.59 10/3/uL (0.67-4.30); MEAN CORPUS HGB CONC 31.3 g/dL (32.0-36.0); MEAN CORPUSCULAR HEMOGLOB 27.9 pg (26.0-34.0); MONOCYTES 3.5 %; MONOCYTES ABSOLUTE 0.62 10/3/uL (0.21-1.20); NEUTROPHILS ABSOLUTE 16.36 10/3/uL (2.02-8.40); PLATELET COUNT 171 10/3/uL (150-400); RBC DISTRIBUTION WIDTH 17.4 % (12.0-16.0); RED CELL COUNT 4.09 10/6/uL (4.0-5.6); WHITE BLOOD CELLS 17.8 10/3/uL (4.5-10.5)
[2016-10-16 03:41] LABS: MANUAL DIFF NO %
[2016-10-16 03:57] LABS: ALBUMIN 3.1 G/DL (3.5-5.0); BUN (BLOOD UREA NITROGEN) 62 MG/DL (6-23); CALCIUM, SERUM 8.9 MG/DL (8.5-10.4); CHLORIDE, SERUM 104 MMOL/L (96-112); CO2 (CARBON DIOXIDE) 32 MMOL/L (24-34); CREATININE 0.89 MG/DL (0.55-1.02); GFR AFRICAN AMERICAN 77 ML/MIN (>=60); GFR NON AFRICAN AMERICAN 66 ML/MIN (>=60); GLUCOSE, SERUM 161 MG/DL (60-99); PHOSPHORUS, SERUM 3.5 MG/DL (2.5-4.5); POTASSIUM, SERUM 3.5 MMOL/L (3.5-5.3); SODIUM, SERUM 143 MMOL/L (135-148)
[2016-10-17 07:18] LABS: BASOPHILS 0.3 %; BASOPHILS ABSOLUTE 0.05 10/3/uL (0.0-0.16); EOSINOPHILS 0.1 %; EOSINOPHILS ABSOLUTE 0.01 10/3/uL (0.0-0.53); HEMATOCRIT 35.2 % (36.0-48.0); HEMOGLOBIN 10.9 g/dL (12.0-16.0); IMMATURE GRANULOCYTES 2.2 %; IMMATURE GRANULOCYTES ABSOLUTE 0.33 10/3/uL (0.0-0.11); LYMPHOCYTES ABSOLUTE 0.61 10/3/uL (0.67-4.30); MEAN CORPUSCULAR HEMOGLOB 28.3 pg (26.0-34.0); MEAN CORPUSCULAR VOLUME 91.4 fL (80-100); MEAN PLATELET VOLUME 11.7 fL (9.2-13.0); MONOCYTES 8.4 %; MONOCYTES ABSOLUTE 1.28 10/3/uL (0.21-1.20); NEUTROPHILS ABSOLUTE 13.03 10/3/uL (2.02-8.40); PLATELET COUNT 168 10/3/uL (150-400); RBC DISTRIBUTION WIDTH 17.5 % (12.0-16.0); RED CELL COUNT 3.85 10/6/uL (4.0-5.6); WHITE BLOOD CELLS 15.3 10/3/uL (4.5-10.5)
[2016-10-17 07:20] LABS: MANUAL DIFF NO %
[2016-10-17 07:33] LABS: A/G RATIO 1.1 (0.7-1.9); ALBUMIN 3.5 G/DL (3.5-5.0); ALKALINE PHOSPHATASE 52 U/L (45-117); CALCIUM, SERUM 8.7 MG/DL (8.5-10.4); CHLORIDE, SERUM 107 MMOL/L (96-112); CO2 (CARBON DIOXIDE) 36 MMOL/L (24-34); CREATININE 0.88 MG/DL (0.55-1.02); GFR AFRICAN AMERICAN 78 ML/MIN (>=60); GFR NON AFRICAN AMERICAN 67 ML/MIN (>=60); GLOBULIN 3.3 G/DL (2.5-4.1); GLUCOSE, SERUM 138 MG/DL (60-99); POTASSIUM, SERUM 3.6 MMOL/L (3.5-5.3); SGOT(AST) 24 U/L (5-40); SGPT(ALT) 21 U/L (5-65); SODIUM, SERUM 149 MMOL/L (135-148); TOTAL BILIRUBIN 0.6 MG/DL (0-1.2); TOTAL PROTEIN 6.8 G/DL (6.0-8.5)
[2016-10-17 07:34] LABS: BUN (BLOOD UREA NITROGEN) 71 MG/DL (6-23)
[2016-10-17 21:08] LABS: BASOPHILS 0.1 %; BASOPHILS ABSOLUTE 0.01 10/3/uL (0.0-0.16); EOSINOPHILS 0 %; HEMATOCRIT 36.1 % (36.0-48.0); HEMOGLOBIN 10.8 g/dL (12.0-16.0); IMMATURE GRANULOCYTES 1.9 %; IMMATURE GRANULOCYTES ABSOLUTE 0.27 10/3/uL (0.0-0.11); LYMPHOCYTES 4.8 %; LYMPHOCYTES ABSOLUTE 0.68 10/3/uL (0.67-4.30); MEAN CORPUS HGB CONC 29.9 g/dL (32.0-36.0); MEAN CORPUSCULAR HEMOGLOB 27.6 pg (26.0-34.0); MEAN CORPUSCULAR VOLUME 92.3 fL (80-100); MEAN PLATELET VOLUME 11.5 fL (9.2-13.0); MONOCYTES 7.4 %; MONOCYTES ABSOLUTE 1.05 10/3/uL (0.21-1.20); NEUTROPHILS 85.8 %; NEUTROPHILS ABSOLUTE 12.12 10/3/uL (2.02-8.40); PLATELET COUNT 173 10/3/uL (150-400); RBC DISTRIBUTION WIDTH 17.6 % (12.0-16.0); RED CELL COUNT 3.91 10/6/uL (4.0-5.6); WHITE BLOOD CELLS 14.1 10/3/uL (4.5-10.5)
[2016-10-17 21:10] LABS: MANUAL DIFF NO %
[2016-10-17 21:20] LABS: BUN (BLOOD UREA NITROGEN) 82 MG/DL (6-23); CALCIUM, SERUM 9.2 MG/DL (8.5-10.4); CHLORIDE, SERUM 108 MMOL/L (96-112); CO2 (CARBON DIOXIDE) 34 MMOL/L (24-34); CREATININE 0.95 MG/DL (0.55-1.02); GFR AFRICAN AMERICAN 71 ML/MIN (>=60); GFR NON AFRICAN AMERICAN 61 ML/MIN (>=60); GLUCOSE, SERUM 134 MG/DL (60-99); SODIUM, SERUM 151 MMOL/L (135-148)
[2016-10-17 21:37] LABS: BAND NEUTROPHILS 2 %; IMMATURE GRANS ABSOLUTE (CALC) 0.42 10/3/uL (0.0-0.11); LYMPHOCYTES 10 %; LYMPHOCYTES ABSOLUTE (CALC) 1.41 10/3/uL (0.67-4.30); METAMYELOCYTES 2 %; MONOCYTES 8 %; MONOCYTES ABSOLUTE (CALC) 1.13 10/3/uL (0.21-1.20); MYELOCYTES 1 %; NEUTROPHILS ABSOLUTE (CALC) 11.14 10/3/uL (2.02-8.40); SEGMENTED NEUTROPHIL (0) 77 %; TOTAL NUCLEATED CELLS 100
[2016-10-17 21:38] LABS: ANISOCYTOSIS 1+ (5-10/OIF) (0-5/OIF); PLATELET ESTIMATE ADQ (ADEQUATE)
[2016-10-18 03:51] LABS: BASOPHILS 0.1 %; BASOPHILS ABSOLUTE 0.01 10/3/uL (0.0-0.16); EOSINOPHILS 0 %; HEMATOCRIT 34.1 % (36.0-48.0); HEMOGLOBIN 10.2 g/dL (12.0-16.0); IMMATURE GRANULOCYTES 1.7 %; LYMPHOCYTES 10.5 %; LYMPHOCYTES ABSOLUTE 1.21 10/3/uL (0.67-4.30); MEAN CORPUS HGB CONC 29.9 g/dL (32.0-36.0); MEAN CORPUSCULAR HEMOGLOB 27.7 pg (26.0-34.0); MEAN CORPUSCULAR VOLUME 92.7 fL (80-100); MEAN PLATELET VOLUME 11.7 fL (9.2-13.0); MONOCYTES ABSOLUTE 0.81 10/3/uL (0.21-1.20); NEUTROPHILS 80.7 %; NEUTROPHILS ABSOLUTE 9.31 10/3/uL (2.02-8.40); PLATELET COUNT 169 10/3/uL (150-400); RBC DISTRIBUTION WIDTH 17.6 % (12.0-16.0); RED CELL COUNT 3.68 10/6/uL (4.0-5.6); WHITE BLOOD CELLS 11.5 10/3/uL (4.5-10.5)
[2016-10-18 03:52] LABS: MANUAL DIFF NO %
[2016-10-18 04:00] LABS: ALBUMIN 3.7 G/DL (3.5-5.0); CALCIUM, SERUM 8.9 MG/DL (8.5-10.4); CHLORIDE, SERUM 111 MMOL/L (96-112); CO2 (CARBON DIOXIDE) 35 MMOL/L (24-34); CREATININE 0.88 MG/DL (0.55-1.02); GFR AFRICAN AMERICAN 78 ML/MIN (>=60); GFR NON AFRICAN AMERICAN 67 ML/MIN (>=60); PHOSPHORUS, SERUM 4.1 MG/DL (2.5-4.5); POTASSIUM, SERUM 3.8 MMOL/L (3.5-5.3); SODIUM, SERUM 153 MMOL/L (135-148)
[2016-10-18 04:02] LABS: BUN (BLOOD UREA NITROGEN) 75 MG/DL (6-23); GLUCOSE, SERUM 106 MG/DL (60-99)
[2016-10-19 01:07] LABS: POTASSIUM, SERUM 3.5 MMOL/L (3.5-5.3)
[2016-10-19 04:42] LABS: BASOPHILS 0.1 %; BASOPHILS ABSOLUTE 0.01 10/3/uL (0.0-0.16); EOSINOPHILS 0.7 %; EOSINOPHILS ABSOLUTE 0.09 10/3/uL (0.0-0.53); HEMATOCRIT 35.8 % (36.0-48.0); HEMOGLOBIN 10.7 g/dL (12.0-16.0); IMMATURE GRANULOCYTES 1.5 %; IMMATURE GRANULOCYTES ABSOLUTE 0.18 10/3/uL (0.0-0.11); LYMPHOCYTES 10.5 %; LYMPHOCYTES ABSOLUTE 1.29 10/3/uL (0.67-4.30); MEAN CORPUS HGB CONC 29.9 g/dL (32.0-36.0); MEAN CORPUSCULAR HEMOGLOB 27.4 pg (26.0-34.0); MEAN CORPUSCULAR VOLUME 91.8 fL (80-100); MEAN PLATELET VOLUME 11.7 fL (9.2-13.0); MONOCYTES 7.2 %; MONOCYTES ABSOLUTE 0.88 10/3/uL (0.21-1.20); NEUTROPHILS ABSOLUTE 9.85 10/3/uL (2.02-8.40); PLATELET COUNT 160 10/3/uL (150-400); RBC DISTRIBUTION WIDTH 17.6 % (12.0-16.0); WHITE BLOOD CELLS 12.3 10/3/uL (4.5-10.5)
[2016-10-19 04:47] LABS: MANUAL DIFF NO %
[2016-10-19 04:49] LABS: CALCIUM, SERUM 9.8 MG/DL (8.5-10.4); CHLORIDE, SERUM 108 MMOL/L (96-112); CO2 (CARBON DIOXIDE) 32 MMOL/L (24-34); CREATININE 0.94 MG/DL (0.55-1.02); GFR AFRICAN AMERICAN 72 ML/MIN (>=60); GFR NON AFRICAN AMERICAN 62 ML/MIN (>=60); GLUCOSE, SERUM 99 MG/DL (60-99); PHOSPHORUS, SERUM 4.9 MG/DL (2.5-4.5); POTASSIUM, SERUM 3.8 MMOL/L (3.5-5.3); SODIUM, SERUM 151 MMOL/L (135-148)
[2016-10-19 04:53] LABS: ALBUMIN 4.8 G/DL (3.5-5.0); BUN (BLOOD UREA NITROGEN) 82 MG/DL (6-23)
[2016-10-20 05:04] LABS: BASOPHILS 0.1 %; BASOPHILS ABSOLUTE 0.01 10/3/uL (0.0-0.16); EOSINOPHILS 0.5 %; EOSINOPHILS ABSOLUTE 0.06 10/3/uL (0.0-0.53); HEMOGLOBIN 11.1 g/dL (12.0-16.0); IMMATURE GRANULOCYTES 1.4 %; IMMATURE GRANULOCYTES ABSOLUTE 0.16 10/3/uL (0.0-0.11); LYMPHOCYTES 9.3 %; LYMPHOCYTES ABSOLUTE 1.06 10/3/uL (0.67-4.30); MEAN CORPUS HGB CONC 30.8 g/dL (32.0-36.0); MEAN CORPUSCULAR VOLUME 90.9 fL (80-100); MEAN PLATELET VOLUME 11.3 fL (9.2-13.0); MONOCYTES 5.9 %; MONOCYTES ABSOLUTE 0.67 10/3/uL (0.21-1.20); NEUTROPHILS 82.8 %; NEUTROPHILS ABSOLUTE 9.48 10/3/uL (2.02-8.40); PLATELET COUNT 142 10/3/uL (150-400); RBC DISTRIBUTION WIDTH 17.1 % (12.0-16.0); RED CELL COUNT 3.96 10/6/uL (4.0-5.6); WHITE BLOOD CELLS 11.4 10/3/uL (4.5-10.5)
[2016-10-20 05:05] LABS: MANUAL DIFF NO %
[2016-10-20 05:28] LABS: BUN (BLOOD UREA NITROGEN) 82 MG/DL (6-23); CALCIUM, SERUM 9.7 MG/DL (8.5-10.4); CHLORIDE, SERUM 107 MMOL/L (96-112); CO2 (CARBON DIOXIDE) 29 MMOL/L (24-34); CREATININE 0.83 MG/DL (0.55-1.02); GFR AFRICAN AMERICAN 83 ML/MIN (>=60); GFR NON AFRICAN AMERICAN 72 ML/MIN (>=60); GLUCOSE, SERUM 109 MG/DL (60-99); POTASSIUM, SERUM 3.9 MMOL/L (3.5-5.3); SODIUM, SERUM 148 MMOL/L (135-148)
[2016-10-21 03:33] LABS: BASOPHILS 0.1 %; BASOPHILS ABSOLUTE 0.01 10/3/uL (0.0-0.16); EOSINOPHILS 1.1 %; EOSINOPHILS ABSOLUTE 0.12 10/3/uL (0.0-0.53); HEMATOCRIT 35.4 % (36.0-48.0); HEMOGLOBIN 10.6 g/dL (12.0-16.0); IMMATURE GRANULOCYTES 1.1 %; IMMATURE GRANULOCYTES ABSOLUTE 0.12 10/3/uL (0.0-0.11); LYMPHOCYTES 8.1 %; LYMPHOCYTES ABSOLUTE 0.89 10/3/uL (0.67-4.30); MEAN CORPUS HGB CONC 29.9 g/dL (32.0-36.0); MEAN CORPUSCULAR HEMOGLOB 27.2 pg (26.0-34.0); MEAN CORPUSCULAR VOLUME 90.8 fL (80-100); MEAN PLATELET VOLUME 11.5 fL (9.2-13.0); MONOCYTES 5.3 %; MONOCYTES ABSOLUTE 0.58 10/3/uL (0.21-1.20); NEUTROPHILS 84.3 %; NEUTROPHILS ABSOLUTE 9.24 10/3/uL (2.02-8.40); PLATELET COUNT 131 10/3/uL (150-400); RBC DISTRIBUTION WIDTH 17.2 % (12.0-16.0)
[2016-10-21 03:35] LABS: MANUAL DIFF NO %
[2016-10-21 03:51] LABS: CHLORIDE, SERUM 108 MMOL/L (96-112); CO2 (CARBON DIOXIDE) 29 MMOL/L (24-34); CREATININE 0.62 MG/DL (0.55-1.02); GFR AFRICAN AMERICAN 107 ML/MIN (>=60); GFR NON AFRICAN AMERICAN 92 ML/MIN (>=60); GLUCOSE, SERUM 114 MG/DL (60-99); POTASSIUM, SERUM 4.2 MMOL/L (3.5-5.3); SODIUM, SERUM 147 MMOL/L (135-148)
[2016-10-21 03:52] LABS: BUN (BLOOD UREA NITROGEN) 69 MG/DL (6-23)
[2016-10-21 04:14] LABS: PROCALCITONIN 0.29 ng/mL (<0.5)
[2016-10-22 03:23] LABS: BASOPHILS 0.2 %; BASOPHILS ABSOLUTE 0.03 10/3/uL (0.0-0.16); EOSINOPHILS ABSOLUTE 0.12 10/3/uL (0.0-0.53); IMMATURE GRANULOCYTES ABSOLUTE 0.12 10/3/uL (0.0-0.11); LYMPHOCYTES 11.8 %; LYMPHOCYTES ABSOLUTE 1.43 10/3/uL (0.67-4.30); MEAN CORPUS HGB CONC 31.2 g/dL (32.0-36.0); MEAN CORPUSCULAR HEMOGLOB 27.6 pg (26.0-34.0); MEAN CORPUSCULAR VOLUME 88.6 fL (80-100); MEAN PLATELET VOLUME 12.2 fL (9.2-13.0); MONOCYTES 6.8 %; MONOCYTES ABSOLUTE 0.82 10/3/uL (0.21-1.20); NEUTROPHILS 79.2 %; NEUTROPHILS ABSOLUTE 9.56 10/3/uL (2.02-8.40); PLATELET COUNT 154 10/3/uL (150-400); RBC DISTRIBUTION WIDTH 16.7 % (12.0-16.0); RED CELL COUNT 4.63 10/6/uL (4.0-5.6); WHITE BLOOD CELLS 12.1 10/3/uL (4.5-10.5)
[2016-10-22 03:24] LABS: HEMOGLOBIN 12.8 g/dL (12.0-16.0)
[2016-10-22 03:25] LABS: MANUAL DIFF NO %
[2016-10-22 03:37] LABS: CHLORIDE, SERUM 101 MMOL/L (96-112); CO2 (CARBON DIOXIDE) 32 MMOL/L (24-34); CREATININE 0.75 MG/DL (0.55-1.02); GFR AFRICAN AMERICAN 94 ML/MIN (>=60); GFR NON AFRICAN AMERICAN 81 ML/MIN (>=60); POTASSIUM, SERUM 3.4 MMOL/L (3.5-5.3); SODIUM, SERUM 147 MMOL/L (135-148)
[2016-10-22 03:38] LABS: BUN (BLOOD UREA NITROGEN) 61 MG/DL (6-23); CALCIUM, SERUM 10.2 MG/DL (8.5-10.4); GLUCOSE, SERUM 87 MG/DL (60-99)
[2016-10-22 05:40] LABS: PHOSPHORUS, SERUM 4.5 MG/DL (2.5-4.5)
[2016-10-23 02:51] LABS: BASOPHILS 0.2 %; BASOPHILS ABSOLUTE 0.02 10/3/uL (0.0-0.16); EOSINOPHILS 0.8 %; EOSINOPHILS ABSOLUTE 0.09 10/3/uL (0.0-0.53); HEMATOCRIT 37.7 % (36.0-48.0); IMMATURE GRANULOCYTES 0.8 %; LYMPHOCYTES 11.5 %; LYMPHOCYTES ABSOLUTE 1.36 10/3/uL (0.67-4.30); MANUAL DIFF NO %; MEAN CORPUS HGB CONC 31.8 g/dL (32.0-36.0); MEAN CORPUSCULAR VOLUME 88.1 fL (80-100); MEAN PLATELET VOLUME 11.6 fL (9.2-13.0); MONOCYTES 6.3 %; MONOCYTES ABSOLUTE 0.74 10/3/uL (0.21-1.20); NEUTROPHILS 80.4 %; NEUTROPHILS ABSOLUTE 9.53 10/3/uL (2.02-8.40); PLATELET COUNT 145 10/3/uL (150-400); RBC DISTRIBUTION WIDTH 16.2 % (12.0-16.0); RED CELL COUNT 4.28 10/6/uL (4.0-5.6); WHITE BLOOD CELLS 11.8 10/3/uL (4.5-10.5)
[2016-10-23 03:08] LABS: BUN (BLOOD UREA NITROGEN) 56 MG/DL (6-23); CALCIUM, SERUM 9.7 MG/DL (8.5-10.4); CHLORIDE, SERUM 103 MMOL/L (96-112); CO2 (CARBON DIOXIDE) 28 MMOL/L (24-34); CREATININE 0.72 MG/DL (0.55-1.02); GFR AFRICAN AMERICAN 99 ML/MIN (>=60); GFR NON AFRICAN AMERICAN 85 ML/MIN (>=60); GLUCOSE, SERUM 98 MG/DL (60-99); PHOSPHORUS, SERUM 4.9 MG/DL (2.5-4.5); POTASSIUM, SERUM 3.9 MMOL/L (3.5-5.3); SODIUM, SERUM 142 MMOL/L (135-148)
[2016-10-24 03:56] LABS: BASOPHILS 0.1 %; BASOPHILS ABSOLUTE 0.01 10/3/uL (0.0-0.16); EOSINOPHILS 1.2 %; EOSINOPHILS ABSOLUTE 0.14 10/3/uL (0.0-0.53); HEMATOCRIT 37.1 % (36.0-48.0); HEMOGLOBIN 11.7 g/dL (12.0-16.0); IMMATURE GRANULOCYTES 1.1 %; IMMATURE GRANULOCYTES ABSOLUTE 0.12 10/3/uL (0.0-0.11); LYMPHOCYTES 13.5 %; LYMPHOCYTES ABSOLUTE 1.54 10/3/uL (0.67-4.30); MEAN CORPUS HGB CONC 31.5 g/dL (32.0-36.0); MEAN CORPUSCULAR HEMOGLOB 27.7 pg (26.0-34.0); MEAN CORPUSCULAR VOLUME 87.9 fL (80-100); MEAN PLATELET VOLUME 12.2 fL (9.2-13.0); MONOCYTES 5.1 %; MONOCYTES ABSOLUTE 0.58 10/3/uL (0.21-1.20); NEUTROPHILS ABSOLUTE 8.99 10/3/uL (2.02-8.40); PLATELET COUNT 155 10/3/uL (150-400); RBC DISTRIBUTION WIDTH 16.5 % (12.0-16.0); RED CELL COUNT 4.22 10/6/uL (4.0-5.6); WHITE BLOOD CELLS 11.4 10/3/uL (4.5-10.5)
[2016-10-24 03:58] LABS: MANUAL DIFF NO %
[2016-10-24 04:09] LABS: CALCIUM, SERUM 9.7 MG/DL (8.5-10.4); CHLORIDE, SERUM 104 MMOL/L (96-112); CO2 (CARBON DIOXIDE) 26 MMOL/L (24-34); CREATININE 0.65 MG/DL (0.55-1.02); GFR AFRICAN AMERICAN 105 ML/MIN (>=60); GFR NON AFRICAN AMERICAN 91 ML/MIN (>=60); GLUCOSE, SERUM 85 MG/DL (60-99); PHOSPHORUS, SERUM 4.5 MG/DL (2.5-4.5); SODIUM, SERUM 141 MMOL/L (135-148)
[2016-10-24 04:10] LABS: BUN (BLOOD UREA NITROGEN) 52 MG/DL (6-23)
[2016-10-24 04:21] LABS: ANISOCYTOSIS 1+ (5-10/OIF) (0-5/OIF); BAND NEUTROPHILS 3 %; EOSINOPHILS 1 %; EOSINOPHILS ABSOLUTE (CALC) 0.11 10/3/uL (0.0-0.53); GIANT PLATELET FEW; LYMPHOCYTES 7 %; MONOCYTES 1 %; MONOCYTES ABSOLUTE (CALC) 0.11 10/3/uL (0.21-1.20); NEUTROPHILS ABSOLUTE (CALC) 10.37 10/3/uL (2.02-8.40); PLATELET ESTIMATE ADQ (ADEQUATE); RBC MORPHOLOGY ABN (NORMAL); SEGMENTED NEUTROPHIL (0) 88 %; TOTAL NUCLEATED CELLS 100
[2016-10-25 04:42] LABS: BASOPHILS 0.1 %; BASOPHILS ABSOLUTE 0.01 10/3/uL (0.0-0.16); EOSINOPHILS 0.6 %; EOSINOPHILS ABSOLUTE 0.06 10/3/uL (0.0-0.53); HEMATOCRIT 34.5 % (36.0-48.0); HEMOGLOBIN 11.4 g/dL (12.0-16.0); LYMPHOCYTES 10.1 %; LYMPHOCYTES ABSOLUTE 1.02 10/3/uL (0.67-4.30); MEAN CORPUSCULAR HEMOGLOB 28.6 pg (26.0-34.0); MEAN CORPUSCULAR VOLUME 86.7 fL (80-100); MONOCYTES 5.7 %; MONOCYTES ABSOLUTE 0.57 10/3/uL (0.21-1.20); NEUTROPHILS 82.5 %; NEUTROPHILS ABSOLUTE 8.32 10/3/uL (2.02-8.40); PLATELET COUNT 157 10/3/uL (150-400); RBC DISTRIBUTION WIDTH 16.5 % (12.0-16.0); RED CELL COUNT 3.98 10/6/uL (4.0-5.6); WHITE BLOOD CELLS 10.1 10/3/uL (4.5-10.5)
[2016-10-25 04:45] LABS: MANUAL DIFF NO %
[2016-10-25 04:55] LABS: CALCIUM, SERUM 9.4 MG/DL (8.5-10.4); CHLORIDE, SERUM 105 MMOL/L (96-112); CO2 (CARBON DIOXIDE) 25 MMOL/L (24-34); CREATININE 0.64 MG/DL (0.55-1.02); GFR AFRICAN AMERICAN 106 ML/MIN (>=60); GFR NON AFRICAN AMERICAN 91 ML/MIN (>=60); GLUCOSE, SERUM 86 MG/DL (60-99); POTASSIUM, SERUM 4.1 MMOL/L (3.5-5.3); SODIUM, SERUM 140 MMOL/L (135-148)
[2016-10-25 04:57] LABS: BUN (BLOOD UREA NITROGEN) 36 MG/DL (6-23)
[2016-10-26 04:14] LABS: BASOPHILS 0 %; EOSINOPHILS 0.5 %; EOSINOPHILS ABSOLUTE 0.05 10/3/uL (0.0-0.53); HEMATOCRIT 35.1 % (36.0-48.0); HEMOGLOBIN 11.3 g/dL (12.0-16.0); IMMATURE GRANULOCYTES 0.9 %; IMMATURE GRANULOCYTES ABSOLUTE 0.09 10/3/uL (0.0-0.11); LYMPHOCYTES 10.6 %; LYMPHOCYTES ABSOLUTE 1.02 10/3/uL (0.67-4.30); MEAN CORPUS HGB CONC 32.2 g/dL (32.0-36.0); MEAN CORPUSCULAR HEMOGLOB 28.1 pg (26.0-34.0); MEAN CORPUSCULAR VOLUME 87.3 fL (80-100); MEAN PLATELET VOLUME 11.7 fL (9.2-13.0); MONOCYTES 4.3 %; MONOCYTES ABSOLUTE 0.41 10/3/uL (0.21-1.20); NEUTROPHILS 83.7 %; NEUTROPHILS ABSOLUTE 8.03 10/3/uL (2.02-8.40); PLATELET COUNT 182 10/3/uL (150-400); RBC DISTRIBUTION WIDTH 16.7 % (12.0-16.0); RED CELL COUNT 4.02 10/6/uL (4.0-5.6); WHITE BLOOD CELLS 9.6 10/3/uL (4.5-10.5)
[2016-10-26 04:16] LABS: MANUAL DIFF NO %
[2016-10-26 04:23] LABS: CALCIUM, SERUM 9.1 MG/DL (8.5-10.4); CHLORIDE, SERUM 101 MMOL/L (96-112); CO2 (CARBON DIOXIDE) 27 MMOL/L (24-34); CREATININE 0.65 MG/DL (0.55-1.02); GFR AFRICAN AMERICAN 105 ML/MIN (>=60); GFR NON AFRICAN AMERICAN 91 ML/MIN (>=60); POTASSIUM, SERUM 4.9 MMOL/L (3.5-5.3); SODIUM, SERUM 135 MMOL/L (135-148)
[2016-10-26 04:24] LABS: BUN (BLOOD UREA NITROGEN) 30 MG/DL (6-23); GLUCOSE, SERUM 111 MG/DL (60-99)
[2016-10-27 04:06] LABS: BASOPHILS 0.1 %; BASOPHILS ABSOLUTE 0.01 10/3/uL (0.0-0.16); EOSINOPHILS 1.4 %; HEMATOCRIT 35.6 % (36.0-48.0); HEMOGLOBIN 11.4 g/dL (12.0-16.0); IMMATURE GRANULOCYTES 0.9 %; IMMATURE GRANULOCYTES ABSOLUTE 0.06 10/3/uL (0.0-0.11); LYMPHOCYTES ABSOLUTE 0.97 10/3/uL (0.67-4.30); MEAN CORPUSCULAR HEMOGLOB 28.1 pg (26.0-34.0); MEAN CORPUSCULAR VOLUME 87.9 fL (80-100); MEAN PLATELET VOLUME 11.6 fL (9.2-13.0); MONOCYTES 6.2 %; MONOCYTES ABSOLUTE 0.43 10/3/uL (0.21-1.20); NEUTROPHILS 77.4 %; NEUTROPHILS ABSOLUTE 5.35 10/3/uL (2.02-8.40); PLATELET COUNT 204 10/3/uL (150-400); RBC DISTRIBUTION WIDTH 16.9 % (12.0-16.0); RED CELL COUNT 4.05 10/6/uL (4.0-5.6); WHITE BLOOD CELLS 6.9 10/3/uL (4.5-10.5)
[2016-10-27 04:07] LABS: MANUAL DIFF NO %
[2016-10-27 04:18] LABS: CALCIUM, SERUM 8.9 MG/DL (8.5-10.4); CHLORIDE, SERUM 102 MMOL/L (96-112); CO2 (CARBON DIOXIDE) 26 MMOL/L (24-34); GFR AFRICAN AMERICAN 108 ML/MIN (>=60); GFR NON AFRICAN AMERICAN 93 ML/MIN (>=60); PHOSPHORUS, SERUM 3.8 MG/DL (2.5-4.5); POTASSIUM, SERUM 4.4 MMOL/L (3.5-5.3); SODIUM, SERUM 137 MMOL/L (135-148)
[2016-10-27 04:20] LABS: ALBUMIN 3.2 G/DL (3.5-5.0); BUN (BLOOD UREA NITROGEN) 24 MG/DL (6-23); GLUCOSE, SERUM 85 MG/DL (60-99)
[2016-10-28 06:44] LABS: BASOPHILS 0.1 %; BASOPHILS ABSOLUTE 0.01 10/3/uL (0.0-0.16); EOSINOPHILS ABSOLUTE 0.07 10/3/uL (0.0-0.53); HEMATOCRIT 35.6 % (36.0-48.0); HEMOGLOBIN 11.6 g/dL (12.0-16.0); IMMATURE GRANULOCYTES 0.6 %; IMMATURE GRANULOCYTES ABSOLUTE 0.04 10/3/uL (0.0-0.11); LYMPHOCYTES 14.5 %; LYMPHOCYTES ABSOLUTE 0.99 10/3/uL (0.67-4.30); MEAN CORPUS HGB CONC 32.6 g/dL (32.0-36.0); MEAN CORPUSCULAR HEMOGLOB 28.1 pg (26.0-34.0); MEAN CORPUSCULAR VOLUME 86.2 fL (80-100); MEAN PLATELET VOLUME 10.7 fL (9.2-13.0); MONOCYTES 5.7 %; MONOCYTES ABSOLUTE 0.39 10/3/uL (0.21-1.20); NEUTROPHILS 78.1 %; NEUTROPHILS ABSOLUTE 5.35 10/3/uL (2.02-8.40); PLATELET COUNT 217 10/3/uL (150-400); RBC DISTRIBUTION WIDTH 17.5 % (12.0-16.0); RED CELL COUNT 4.13 10/6/uL (4.0-5.6); WHITE BLOOD CELLS 6.9 10/3/uL (4.5-10.5)
[2016-10-28 06:46] LABS: MANUAL DIFF NO %
[2016-10-28 07:03] LABS: ALBUMIN 3.3 G/DL (3.5-5.0); CALCIUM, SERUM 9.1 MG/DL (8.5-10.4); CHLORIDE, SERUM 101 MMOL/L (96-112); CO2 (CARBON DIOXIDE) 28 MMOL/L (24-34); GFR AFRICAN AMERICAN 108 ML/MIN (>=60); GFR NON AFRICAN AMERICAN 93 ML/MIN (>=60); GLUCOSE, SERUM 77 MG/DL (60-99); PHOSPHORUS, SERUM 4.7 MG/DL (2.5-4.5); POTASSIUM, SERUM 4.2 MMOL/L (3.5-5.3); SODIUM, SERUM 135 MMOL/L (135-148)
[2016-10-28 07:04] LABS: BUN (BLOOD UREA NITROGEN) 20 MG/DL (6-23)
[2016-10-29 06:13] LABS: HEMATOCRIT 38.8 % (36.0-48.0); HEMOGLOBIN 12.6 g/dL (12.0-16.0); MEAN CORPUS HGB CONC 32.5 g/dL (32.0-36.0); MEAN CORPUSCULAR HEMOGLOB 28.6 pg (26.0-34.0); MEAN PLATELET VOLUME 11.4 fL (9.2-13.0); PLATELET COUNT 239 10/3/uL (150-400); RBC DISTRIBUTION WIDTH 17.3 % (12.0-16.0); RED CELL COUNT 4.41 10/6/uL (4.0-5.6); WHITE BLOOD CELLS 6.8 10/3/uL (4.5-10.5)
[2016-10-29 06:15] LABS: MANUAL DIFF YES %
[2016-10-29 06:34] LABS: BUN (BLOOD UREA NITROGEN) 25 MG/DL (6-23); CALCIUM, SERUM 9.9 MG/DL (8.5-10.4); CHLORIDE, SERUM 97 MMOL/L (96-112); CO2 (CARBON DIOXIDE) 24 MMOL/L (24-34); CREATININE 0.84 MG/DL (0.55-1.02); GFR AFRICAN AMERICAN 82 ML/MIN (>=60); GFR NON AFRICAN AMERICAN 71 ML/MIN (>=60); GLUCOSE, SERUM 76 MG/DL (60-99); POTASSIUM, SERUM 3.5 MMOL/L (3.5-5.3); SODIUM, SERUM 135 MMOL/L (135-148)
[2016-10-29 07:34] LABS: ANISOCYTOSIS 1+ (5-10/OIF) (0-5/OIF); EOSINOPHILS 1 %; EOSINOPHILS ABSOLUTE (CALC) 0.07 10/3/uL (0.0-0.53); LYMPHOCYTES 9 %; LYMPHOCYTES ABSOLUTE (CALC) 0.61 10/3/uL (0.67-4.30); MONOCYTES 4 %; MONOCYTES ABSOLUTE (CALC) 0.27 10/3/uL (0.21-1.20); NEUTROPHILS ABSOLUTE (CALC) 5.85 10/3/uL (2.02-8.40); PLATELET ESTIMATE ADQ (ADEQUATE); SEGMENTED NEUTROPHIL (0) 86 %; TOTAL NUCLEATED CELLS 100
[2016-10-30 06:13] LABS: BASOPHILS 0 %; EOSINOPHILS 1.9 %; EOSINOPHILS ABSOLUTE 0.12 10/3/uL (0.0-0.53); HEMATOCRIT 39.3 % (36.0-48.0); HEMOGLOBIN 12.8 g/dL (12.0-16.0); IMMATURE GRANULOCYTES 0.5 %; IMMATURE GRANULOCYTES ABSOLUTE 0.03 10/3/uL (0.0-0.11); LYMPHOCYTES 18.2 %; LYMPHOCYTES ABSOLUTE 1.14 10/3/uL (0.67-4.30); MEAN CORPUS HGB CONC 32.6 g/dL (32.0-36.0); MEAN CORPUSCULAR HEMOGLOB 28.8 pg (26.0-34.0); MEAN CORPUSCULAR VOLUME 88.5 fL (80-100); MONOCYTES 8.8 %; MONOCYTES ABSOLUTE 0.55 10/3/uL (0.21-1.20); NEUTROPHILS 70.6 %; NEUTROPHILS ABSOLUTE 4.41 10/3/uL (2.02-8.40); PLATELET COUNT 264 10/3/uL (150-400); RBC DISTRIBUTION WIDTH 17.6 % (12.0-16.0); RED CELL COUNT 4.44 10/6/uL (4.0-5.6); WHITE BLOOD CELLS 6.3 10/3/uL (4.5-10.5)
[2016-10-30 06:25] LABS: MANUAL DIFF NO %
[2016-10-30 06:32] LABS: CALCIUM, SERUM 9.5 MG/DL (8.5-10.4); CHLORIDE, SERUM 96 MMOL/L (96-112); CO2 (CARBON DIOXIDE) 25 MMOL/L (24-34); CREATININE 1.32 MG/DL (0.55-1.02); GFR AFRICAN AMERICAN 48 ML/MIN (>=60); GFR NON AFRICAN AMERICAN 41 ML/MIN (>=60); GLUCOSE, SERUM 71 MG/DL (60-99); POTASSIUM, SERUM 3.8 MMOL/L (3.5-5.3); SODIUM, SERUM 135 MMOL/L (135-148)
[2016-10-30 06:33] LABS: BUN (BLOOD UREA NITROGEN) 43 MG/DL (6-23)
[2016-10-31 02:50] LABS: ASCORBIC ACID (UR NOT ORDER) 40 (NEG); BILIRUBIN, URINE NEGATIVE (NEG); KETONE, URINE NEGATIVE (NEG); LEUKOCYTE ESTERASE(NOT OR SMALL (NEG); WBC (NOT ORDERED) (RFLEX) 9 (0-5)
[2016-10-31 05:19] LABS: CALCIUM, SERUM 9.9 MG/DL (8.5-10.4); CHLORIDE, SERUM 98 MMOL/L (96-112); CO2 (CARBON DIOXIDE) 25 MMOL/L (24-34); CREATININE 0.95 MG/DL (0.55-1.02); GFR AFRICAN AMERICAN 71 ML/MIN (>=60); GFR NON AFRICAN AMERICAN 61 ML/MIN (>=60); GLUCOSE, SERUM 75 MG/DL (60-99); SODIUM, SERUM 134 MMOL/L (135-148)
[2016-10-31 05:21] LABS: BUN (BLOOD UREA NITROGEN) 48 MG/DL (6-23)
[2017-01-17] MEDS ORDERED: METHOC750B PO (22:55)
[2017-01-17] MEDS ORDERED: MIRAPEX1 MG PO (22:56)
[2017-01-17] MEDS ORDERED: NORCO1 TA1 PO (22:56)
[2017-01-17] MEDS ORDERED: HALF81 PO (22:56)
[2017-01-17] MEDS ORDERED: SIN25 PO (22:56)
[2017-01-17] MEDS ORDERED: ESTRACE0.5 MG PO (22:57)
[2017-01-17] MEDS ORDERED: MELA3 PO (22:57)
[2017-01-17] MEDS ORDERED: PRILO PO (22:57)
[2017-01-17] MEDS ORDERED: PROAIR HFA INH (22:58)
[2017-01-17] MEDS ORDERED: EFFEX75 PO (22:58)
[2017-01-17] MEDS ORDERED: ALBUTEROL5 INH (22:58)
[2017-01-17] MEDS ORDERED: ADVAIR230P INH (22:58)
[2017-01-17] MEDS ORDERED: BIOFREEZE TOP (22:59)
[2017-01-24] MEDS ORDERED: DEMA100 PO (10:10)
[2017-01-24] MEDS ORDERED: FESO4 PO (10:11)
[2017-01-24] MEDS ORDERED: LOP25 PO (10:11)
== END 2016-10-31 14:46 | DRG 207 ==
LOC: ER 22:14 → CVICU 10-08 02:41 → 5NO 10-27 14:49
PROVIDERS: Emergency Medicine; Internal Medicine; Internal Medicine Critical Care Medicine; Internal Medicine Pulmonary Disease; Student in an Organized Health Care Education/Training Program
PROC: 0BH17EZ Insertion of Endotracheal Airway into Trachea, Via Natural or Artificial Opening (ICD-10-PCS; principal; 2016-10-08)
PROC: 5A1955Z Respiratory Ventilation, Greater than 96 Consecutive Hours (ICD-10-PCS; 2016-10-08)
PROC: 0BH17EZ Insertion of Endotracheal Airway into Trachea, Via Natural or Artificial Opening (ICD-10-PCS; 2016-10-14)
PROC: 5A1955Z Respiratory Ventilation, Greater than 96 Consecutive Hours (ICD-10-PCS; 2016-10-14)
PROC: 02HV33Z Insertion of Infusion Device into Superior Vena Cava, Percutaneous Approach (ICD-10-PCS; 2016-10-15)
PROC: 4A02X4A Measurement of Cardiac Electrical Activity, Guidance, External Approach (ICD-10-PCS; 2016-10-15)
DX: J96.22 Acute and chronic respiratory failure with hypercapnia (principal); I21.4 Non-ST elevation (NSTEMI) myocardial infarction; N17.9 Acute kidney failure, unspecified; E87.2 Acidosis; J15.212 Pneumonia due to Methicillin resistant Staphylococcus aureus; K31.84 Gastroparesis; J44.1 Chronic obstructive pulmonary disease with (acute) exacerbation; J44.0 Chronic obstructive pulmonary disease with (acute) lower respiratory infection; G89.4 Chronic pain syndrome; M19.90 Unspecified osteoarthritis, unspecified site; G25.81 Restless legs syndrome; K21.9 Gastro-esophageal reflux disease without esophagitis; I10 Essential (primary) hypertension; Z90.49 Acquired absence of other specified parts of digestive tract; Z98.890 Other specified postprocedural states; Z96.651 Presence of right artificial knee joint; Z80.0 Family history of malignant neoplasm of digestive organs; Z88.6 Allergy status to analgesic agent; Z88.5 Allergy status to narcotic agent; Z88.8 Allergy status to other drugs, medicaments and biological substances; Z79.899 Other long term (current) drug therapy; E66.9 Obesity, unspecified; J96.11 Chronic respiratory failure with hypoxia; F32.9 Major depressive disorder, single episode, unspecified; Z87.891 Personal history of nicotine dependence; Z68.33 Body mass index [BMI] 33.0-33.9, adult
CPT/HCPCS: 31500; 31720; 36569; 36600; 70450; 71010; 74000; 80048; 80053; 80069; 80202; 80305; 80307; 81001; 82550; 82553; 82805; 82962; 83605; 83735; 84100; 84132; 84145; 84484; 85025; 85610; 85730; 87040; 87070; 87077; 87086; 87186; 87205; 87449; 87641; 93005; 93306; 93970; 94002; 94003; 94640; 94660; 94770; 96365; 96368; 96375; 97110-GP; 97162-GP; 97166-GO; 97530-GP; 99291; A9270-GY; C1751; C1894; C9113; J0330; J1120; J1205; J1940; J2405; J2920; J3010; J3370; P9047